=== PATIENT | female | born 1955 | race Caucasian/White ===

== ENCOUNTER → 2021-05-18 | Outpatient (CLI) | payer OTHER ==
--- NOTE | 2021-05-19 23:38 | ECWPNPC ---
PATIENT NAME: DELMA HARRIS : 1955 GENDER: FEMALE VISIT DATE: 05/18/2021 DISCHARGE DATE: 05/18/21 1335 VISIT LOCKED DATE TIME: PHYSICIAN: CALI WEN RESOURCE: CALI WEN REASON FOR APPOINTMENT 1. LOW BACK/SCIATICA HISTORY OF PRESENT ILLNESS DEPRESSION SCREENING: PHQ-2 (2015 EDITION) LITTLE INTEREST OR PLEASURE IN DOING THINGS?NOT AT ALL FEELING DOWN, DEPRESSED, OR HOPELESS?NOT AT ALL TOTAL SCORE0 GENERAL: HPI 66-YEAR-OLD FEMALE FOR INITIAL PAIN CONSULT REGARDING LOW BACK PAIN WITH SCIATICA. PATIENT ADMITS BACK PAIN HAS BEEN PRESENT FOR SEVERAL YEARS. SHE DOES ADMIT TO A HISTORY OF LOW BACK SURGERIES. SHE RATES HER PAIN CURRENTLY AT A 6 OUT OF 10 AND DESCRIBES IT ACHING AND CONTINUOUS. THIS IS A WORK RELATED INCIDENT DOI 10/15/04. - - -. FALL RISK SCREENING: SCREENING : NO FALLS REPORTED IN THE LAST YEAR. PAIN SCREENING: PATIENT HAS A COMPLAINT OF ACUTE OR CHRONIC PAIN :YES LOCATION OF PAIN:LOW BACK INTENSITY OF PAIN (SCALE OF 1 TO 10):6 WHAT DOES YOUR PAIN FEEL LIKE:ACHING, CONTINOUS DURATION:ONLY WITH SPECIFIC ACTIVITIES PAIN IS INCREASED BY:ACTIVITIES, PROLONGED STANDING PAIN IS DECREASED BY:OTHERS GETTING UP AND GETTING THINGS DOWN AND THEN TAKING A REST NURSING NOTE: - - -. PAIN CENTER INTAKE QUESTIONS: DO YOU HAVE A HISTORY OF MRSA? :NO DO YOU TAKE A BLOOD THINNERS? :NO DO YOU HAVE ANY BLEEDING DISORDERS? :NO ANY NEW NUMBNESS OR WEAKNESS IN YOUR LEGS OR ARMS? :YES PAIN SHOOT DOWN INTO BUTTOCKAND THE FROM TO THE LEG DOWN INTO THE FOOT ANY PACEMAKER,DEFIBRILLATOR, OR DORSAL COLUMN STIMULATOR? :NO DO YOU HAVE ANY RASHES OR OPEN SORES? :NO ARE YOU ALLERGIC TO IV DYE? :NO ARE YOU DIABETIC? :NO ANY NEW PROBLEMS WITH YOUR MEDICATIONS? :NO HAVE YOU RECEIVED A VACCINE IN THE PAST 30 DAYS? :NO SHINGLES VACCINATION RECEIVED 05/11/2021. PNEUMONIA VACCINATION 05/06/2021. SECOND COVID VACCINATION 01/26/2021 DO YOU PLAN TO RECEIVE A VACCINE IN THE NEXT 21 DAYS? :NO DO YOU NEED ANY PRESCRIPTION? :NO DO YOU TAKE ANY IMMUNOSUPPRESSIVE MEDICATIONS? :NO IS THERE A CHANCE YOU COULD BE ? :NO ARE YOU BREAST FEEDING? :NO CURRENT MEDICATIONS TAKING LEVOTHYROXINE SODIUM 25 MCG TABLET 1 TABLET IN THE MORNING ON AN EMPTY STOMACH ORALLY ONCE A DAY TAKING SUCRALFATE 1 GM TABLET 1 TABLET ON AN EMPTY STOMACH ORALLY TWICE A DAY TAKING PANTOPRAZOLE SODIUM 40 MG TABLET DELAYED RELEASE 1 TABLET ORALLY ONCE A DAY TAKING SIMVASTATIN 20 MG TABLET 1 TABLET IN THE EVENING ORALLY ONCE A DAY TAKING PREMARIN 0.625 MG TABLET 1 TABLET ORALLY MONDAY AND MONDAY TAKING PREGABALIN 150 MG CAPSULE 1 CAPSULE ORALLY TWICE DAILY, NOTES: W/C TAKING TRAMADOL HCL 50 MG TABLET 1 TABLET NEEDED ORALLY THREE TIMES DAILY NEEDED, NOTES: W/C TAKING VITAMIN D 25 MCG (1000 UT) TABLET 1 TABLET ORALLY ONCE A DAY TAKING CRANBERRY 500 MG CAPSULE DIRECTED ORALLY TAKING MULTIVITAMIN WOMEN - TABLET DIRECTED ORALLY TAKING CORAL CALCIUM 1000 (390 CA) MG TABLET 1 TABLET WITH A MEAL ORALLY TWICE DAILY TAKING VITAMIN C 500 MG CAPSULE DIRECTED ORALLY TAKING MULTI COMPLETE/IRON - TABLET DIRECTED ORALLY MEDICATION LIST REVIEWED AND RECONCILED WITH THE PATIENT PAST MEDICAL HISTORY LOW BLOOD PRESSURE SVT BLEEDING ULCER BLOOD CLOT IN RIGHT LUNG SHINGLES VACCINATION RECEIVED 05/11/2021. PNEUMONIA VACCINATION 05/06/2021. SECOND COVID VACCINATION 01/26/2021 LOW BACK PAIN DEPRESSION ALLERGIES IBUPROFEN: HIVES, DIFFICULTY BREATHING SURGICAL HISTORY CHOLECYSTECTOMY 12/2018 TENNIS ELBOW L4-L5 DISC SURGERY 2004 L4-L5 DISC SURGERY 2003 TONSILLECTOMY TUBAL LIGATION 1982 BARIATRIC SURGERY 10/2012 FAMILY HISTORY FATHER: MOTHER: ALIVE SIBLINGS: ALIVE SON(S): ALIVE DAUGHTER(S): ALIVE 1 BROTHER(S) , 2 SISTER(S) . 1 SON(S) , 1 DAUGHTER(S) - HEALTHY. BROTHER . ONE BROTHER HAD PROSTATE CANCER. SOCIAL HISTORY GENERAL: TOBACCO USE ARE YOU A:FORMER SMOKER HOW LONG HAS IT BEEN SINCE YOU LAST SMOKED?> 10 YEARS LATEX QUESTIONNAIRE LATEX ALLERGY : HAVE YOU EVER DEVELOPED ANY TYPE OF REACTION AFTER HANDLING LATEX PRODUCTS SUCH RUBBER GLOVES, CONDOMS, DIAPHRAGMS, BALLOONS, SOCKS, OR UNDERWEAR?NO LATEX ALLERGY : HAVE YOU EVER DEVELOPED ANY TYPE OF REACTION DURING OR AFTER DENTAL APPOINTMENT, VAGINAL/RECTAL EXAMINATION, SURGICAL PROCEDURE, OR ANY OTHER EXPOSURE?NO LATEX RISK : HAVE YOU EVER HAD ANY DIFFICULTY BREATHING OR HIVES AFTER EATING OR HANDLING ANY FRUITS, OR VEGETABLES; SUCH KIWI, BANANAS, STONE FRUITS, OR CHESTNUTSNO LATEX RISK : DO YOU HAVE A PREVIOUS PERSONAL HISTORY OF MORE THAN NINE SURGERIES, SPINA BIFIDA, OR REPEATED CATHERIZATIONS? NO LATEX RISK : ARE YOU FREQUENTLY EXPOSED TO LATEX PRODUCTS IN YOUR OCCUPATION?NO DATE ASKED : 05/18/2021 ALCOHOL USE: RARELY. RECREATIONAL DRUG USE DRUG USE?NO LANGUAGE LANGUAGES SPOKEN:TURKISH EDUCATION LEVEL OF EDUCATION:NOT FINISHED COLLEGE LEARNING BARRIERS / SPECIAL NEEDS CHANGE FROM LAST VISIT?NO BARRIERS TO LEARNING?NO HEARING IMPAIRED?NO VISION IMPAIRED?YES :CORRECTIVE LENSES COGNITIVELY IMPAIRED?NO READINESS TO LEARN?YES LEARNING PREFERENCES?NO LEARNING CAPABILITIES PRESENT?NO EMOTIONAL BARRIERS?NO SPECIAL DEVICES?NO GOLD ASSAYER NEEDED?NO HOSPITALIZATION/MAJOR DIAGNOSTIC PROCEDURE SURGERY RELATED SVT OBSERVATION 1989 REVIEW OF SYSTEMS CONSTITUTIONAL: ANY RECENT FEVER NO . CHILLS NO . WEIGHT CHANGE OF UNKNOWN REASONS NO . MUSCULOSKELETAL: ANY UNUSUAL JOINT PAIN OR SWELLING NOT MENTIONED NO . SYSTEMIC LUPUS NO . ANY NEUROMUSCULAR DISORDER NOT MENTIONED NO . LYME DISEASE NO . GASTROENTEROLOGY: ANY NEW CHANGE IN BOWEL CONTROL? NO . HISTORY OF LIVER DISORDER NOT MENTIONED NO . HISTORY OF UNUSUAL ABDOMINAL PAIN OR CRAMPING NOT MENTIONED NO . NO CONSTIPATION. GENITOURINARY: ANY NEW CHANGE IN BLADDER CONTROL? NO . ANY RENAL/KIDNEY CONDITON NOT MENTIONED NO . NEUROLOGY: HISTORY OF TBI NOT MENTIONED NO . OTHER NEW NUMBNESS OR PAIN PATTERNS NOT MENTIONED NO . NEW ONSET DIZZINESS OR NEUROLOGICAL CHANGES NOT MENTIONED NO . HISTORY OF SEVERE HEADACHES NOT MENTIONED NO . HISTORY OF STROKE OR NEUROLOGICAL DISORDER NOT MENTIONED NO . CARDIOLOGY: HEART SURGERY NO . CONGESTIVE HEART FAILURE/FLUID OVERLOAD NOT MENTIONED NO . HISTORY OF CHEST PAIN,IRREGULAR HEART BEAT NOT MENTIONED NO . RESPIRATORY: SHORTNESS OF BREATH ON EXERTION, WHEEZES, UNUSUAL COUGH NOT MENTIONED NO . ENDOCRINOLOGY: ADRENAL GLAND OR THYROID DISORDERS NOT MENTIONED NO . UNUSUAL URINATION, DIZZINESS OR LETHARGY NOT MENTIONED NO . VITAL SIGNS WT 195 LBS, HT 5'2, BMI 38.08 INDEX, BP 111/66 MM HG, HR 67 /MIN, RR 18 /MIN, TEMP 98 F, OXYGEN SAT % 98%, SAFE IN ENV? (Y/N) YEST.[email or web address] VILLANUEVA. EXAMINATION GENERAL EXAMINATION: GENERALNO ACUTE DISTRESS, WELL NOURISHED AND HYDRATED. PSYCHAPPROPRIATE MOOD AND AFFECT . LUNGS:CLEAR TO AUSCULTATION BILATERALLY, NO WHEEZES, RHONCHI, RALES. HEART:NO MURMURS, REGULAR RATE AND RHYTHM. BACK:POINT TENDER RIGHT LUMBAR SPINE, POSITIVE MODIFIED SLR RIGHT SIDE. MUSCULOSKELETAL:NOTABLE WEAKNESS OF THE RIGHT LOWER EXTREMITY, LEFT LOWER EXTREMITY WITHIN NORMAL LIMITS. ASSESSMENTS LOW BACK PAIN WITH RADIATION - M54.5 (PRIMARY) TREATMENT LOW BACK PAIN WITH RADIATION [facility] MRI LS SPINE W/O AND WITH [id number] NOTES: 66-YEAR-OLD FEMALE FOR INITIAL PAIN CONSULT. GIVEN PRESENTING SYMPTOMS AND RESULTS OF PHYSICAL EXAMINATION RECOMMEND GETTING AN UPDATED MRI FOR POTENTIAL PROCEDURES WITH FOLLOW-UP POST IMAGING. PATIENT HAS EXPRESSED UNDERSTANDING OF AND WAS IN AGREEMENT WITH TREATMENT PLAN. GIVEN TIME TO ASK QUESTIONS AND EXPRESS CONCERNS. PROCEDURES PN WORKMANS' COMP OPINION IN YOUR OPINION, WAS THE INCIDENT THAT THE PATIENT DESCRIBED THE COMPETENT MEDICAL CAUSE OF THIS INJURY/ILLNESS? YES ARE THE PATIENT'S COMPLAINTS CONSISTENT WITH HIS/HER HISTORY OF THE INJURY/ILLNESS? YES IS THE PATIENT'S HISTORY OF THE INJURY/ILLNESS CONSISTENT WITH YOUR OBJECTIVE FINDING? YES WHAT IS THE PERCENTAGE OF TEMPORARY IMPAIRMENT? MODERATE TO MARKED = 66.7% IS THE PATIENT WORKING? NO DOCTOR ON SITE: ASTRID BARROS MD PROCEDURE CODES FA211 ESTABILISHED PATIENT [facility] CHARGE DISPOSITION & COMMUNICATION FOLLOW UP POST IMAGING (REASON: MRI OF THE LUMBAR SPINE WITH AND WITHOUT CONTRAST ) ELECTRONICALLY SIGNED BY JOANNA COSME ON 05/19/2021 AT 09:38 AM EDT DISCLAIMER : THIS IS A VISIT SUMMARY EXTRACTED FROM THE [employer] CHART. IT IS NOT A COPY OF THE [employer] PROGRESS NOTE. SCARLETT
== END ==
LOC: M PAIN 13:00
PROVIDERS: ATTEND Family Medicine
DX: M54.5 Low back pain (principal); F32.9 Major depressive disorder, single episode, unspecified; Z87.11 Personal history of peptic ulcer disease; Z87.891 Personal history of nicotine dependence; Z79.891 Long term (current) use of opiate analgesic; Z79.899 Other long term (current) drug therapy; Z88.6 Allergy status to analgesic agent

== ENCOUNTER → 2021-06-30 | Outpatient (CLI) | payer OTHER ==
[~2021-06-30] MED LIST: PROHANCE 279.3MG/ML 15ML VIAL ONE
--- NOTE | 2021-06-30 16:01 | REP ---
INDICATION: LOW BACK PAIN. COMPARISON: None. TECHNIQUE: Multiple sequences obtained in the sagittal axial planes prior to and following the intravenous administration of 8 cc ProHance. FINDINGS: The vertebral bodies are normal in height. There is approximately 5 mm of anterolisthesis of L4 on L5. There is diffuse loss of water signal and disc degeneration. There is severe narrowing of the L5-S1 disc space, with fusion. The conus is unremarkable. At L1-2 there is mild diffuse disc bulging and moderate hypertrophic change at the posterior facets. There is no significant spinal stenosis or foraminal narrowing. At L2-3 there is mild diffuse disc bulging well as well as superimposed broad-based left lateral disc protrusion involving the left neural foramen. Moderate hypertrophic changes seen of the posterior facets and ligamentum flavum. There is moderate left foraminal narrowing without spinal stenosis. At L3-4 there is moderate diffuse disc bulging. There is moderate facet and ligamentum flavum hypertrophy. There is enhancement along the bilateral facets likely inflammatory/degenerative in etiology. There is mild spinal canal stenosis. There is mild bilateral foraminal narrowing. At L4-5 there is moderate diffuse disc bulging with severe facet hypertrophy and thickening of the ligamentum flavum. There is [id number] spinal stenosis. There is moderate bilateral foraminal narrowing. At L5-S1 there is evidence of prior right hemilaminectomy. There is diffuse osteophytic ridging, most significantly to the right of midline, abutting the descending right S1 nerve root. There is minimal enhancement surrounding the nerve root. Likely secondary to perineural/epidural fibrosis. There is no significant canal stenosis. There is moderate right and mild left foraminal narrowing. IMPRESSION: Postoperative and degenerative changes of the lumbar spine as discussed in detail above. A preliminary report was provided by [facility] at the time of the exam. <Electronically signed by Nikolay Wu > 06/30/21 [id number]
== END ==
LOC: M PLAIMG 12:26
PROVIDERS: ATTEND Family Medicine
DX: M54.5 Low back pain (principal)

== ENCOUNTER → 2021-08-13 | Outpatient (CLI) | payer OTHER | LOC: M PAIN 14:45 | PROVIDERS: ATTEND Anesthesiology | DX: M51.16 Intervertebral disc disorders with radiculopathy, lumbar region (principal); M96.1 Postlaminectomy syndrome, not elsewhere classified; F32.9 Major depressive disorder, single episode, unspecified; Z87.891 Personal history of nicotine dependence; Z79.891 Long term (current) use of opiate analgesic; Z79.899 Other long term (current) drug therapy; Z88.6 Allergy status to analgesic agent ==

== ENCOUNTER → 2022-06-17 | Outpatient (CLI) | payer OTHER | LOC: M PAIN 14:45 | PROVIDERS: ATTEND Nurse Practitioner Family | DX: M96.1 Postlaminectomy syndrome, not elsewhere classified (principal); Z79.891 Long term (current) use of opiate analgesic; M51.16 Intervertebral disc disorders with radiculopathy, lumbar region; F32.A Depression, unspecified; E78.00 Pure hypercholesterolemia, unspecified; Z86.711 Personal history of pulmonary embolism; Z87.19 Personal history of other diseases of the digestive system; Z87.891 Personal history of nicotine dependence; Z79.890 Hormone replacement therapy; Z79.899 Other long term (current) drug therapy; Z88.6 Allergy status to analgesic agent ==

== ENCOUNTER → 2023-06-09 | Outpatient (CLI) | payer OTHER | LOC: M PAIN 15:30 | PROVIDERS: ATTEND Nurse Practitioner Family | DX: M96.1 Postlaminectomy syndrome, not elsewhere classified (principal); Z79.891 Long term (current) use of opiate analgesic; M51.16 Intervertebral disc disorders with radiculopathy, lumbar region; F32.A Depression, unspecified; E78.00 Pure hypercholesterolemia, unspecified; M81.0 Age-related osteoporosis without current pathological fracture; Z86.711 Personal history of pulmonary embolism; Z87.891 Personal history of nicotine dependence; Z79.890 Hormone replacement therapy; Z79.899 Other long term (current) drug therapy; Z88.6 Allergy status to analgesic agent ==